=== PATIENT | male | born 1960 | race Caucasian/White ===

== ENCOUNTER 2023-02-19 12:32 | Inpatient (IN) | payer BC ==
[2023-02-19 13:04] VITALS: BMI 43.9
[2023-02-19] MEDS ORDERED: IBUPROFEN 400 MG TABLET (FP) PO PRN (14:59)
[2023-02-19] MEDS ORDERED: BISMUTH SUBSALICYLATE 262 MG/15 ML BTL PO PRN (14:59)
[2023-02-19] MEDS ORDERED: ONDANSETRON *ODT* 4 MG TABLET SL PRN (14:59)
[2023-02-19] MEDS ORDERED: BUPRENORPHINE HCL 150 MCG, BUPRENORPHINE HCL 75 MCG BC PRN (14:59)
[2023-02-19] MEDS ORDERED: NALOXONE HCL (KLOXXADO) 8 MG SPRAY NS PRN (14:59)
[2023-02-19] MEDS ORDERED: BUPRENORPHINE HCL 150 MCG, BUPRENORPHINE HCL 75 MCG BC ONE (14:59)
[2023-02-19] MEDS ORDERED: BENZOCAINE/MENTHOL (CHLORASEPTIC ) LOZENGE MM PRN (14:59)
[2023-02-19] MEDS ORDERED: guaiFENesin 600 MG TABLET.ER (FP) PO PRN (14:59)
[2023-02-19] MEDS ORDERED: cloNIDine HCL 0.1 MG TABLET PO ONE (14:59)
[2023-02-19] MEDS ORDERED: IBUPROFEN 600 MG TABLET (FP) PO PRN (14:59)
[2023-02-19] MEDS ORDERED: ACETAMINOPHEN 325 MG TABLET (FP) PO PRN (14:59)
[2023-02-19] MEDS ORDERED: BENZONATATE 200 MG CAPSULE PO PRN (14:59)
[2023-02-19] MEDS ORDERED: POLYETHYLENE GLYCOL (HEALTHYLAX) 3350 17 GM PACKET PO PRN (14:59)
[2023-02-19] MEDS ORDERED: LOPERAMIDE HCL 2 MG CAPSULE PO PRN (14:59)
[2023-02-19] MEDS ORDERED: NALOXONE HCL 0.4 MG/ML VIAL IM PRN (14:59)
[2023-02-19] MEDS ORDERED: MAGNESIUM HYDROX 2400MG/30ML ORAL SUSPENSION 30 ML CUP PO PRN (14:59)
[2023-02-19] MEDS ORDERED: DICYCLOMINE HCL 10 MG CAPSULE PO PRN (14:59)
[2023-02-19] MEDS ORDERED: MAG HYDROX/AL HYDROX/SIMETH 30 ML UNIT-DOSE CUP PO PRN (14:59)
[2023-02-19] MEDS ORDERED: BUPRENORPHINE HCL 150 MCG FILM BC ONE (15:35)
[2023-02-19] MEDS ORDERED: BUPRENORPHINE HCL 75 MCG FILM BC ONE (15:35)
[2023-02-19] MEDS ORDERED: cloNIDine HCL 0.1 MG TABLET ONE (15:35)
[2023-02-19] MEDS: PRENATAL VITAMINS W/ FOLIC ACID TABLET (FP) PO SCH (15:40)
[2023-02-19] MEDS: METHOCARBAMOL 500 MG TABLET PO PRN (18:19)
[2023-02-19] MEDS ORDERED: cloNIDine HCL 0.1 MG TABLET PO PRN (18:59)
[2023-02-19] MEDS: LIDOCAINE 5% TOPICAL PATCH TP SCH (21:02)
[2023-02-19] MEDS: THIAMINE HCL 100 MG TABLET (FP) PO SCH (22:29)
[2023-02-19] MEDS: MELATONIN 5 MG TABLETS PO SCH (22:29)
[2023-02-19] MEDS: diazePAM 5 MG TABLET PO PRN (22:31)
[2023-02-19] MEDS: LIDOCAINE PATCH REMOVAL MC SCH (22:35)
[2023-02-20] MEDS ORDERED: BUPRENORPHINE HCL 150 MCG, BUPRENORPHINE HCL 75 MCG BC PRN
[2023-02-20] MEDS: BUPRENORPHINE HCL 150 MCG, BUPRENORPHINE HCL 75 MCG BC SCH ×2 (05:18→17:26)
[2023-02-20] MEDS: PRENATAL VITAMINS W/ FOLIC ACID TABLET (FP) PO SCH (10:08)
[2023-02-20] MEDS: LIDOCAINE 5% TOPICAL PATCH TP SCH (10:08)
[2023-02-20] MEDS: hydrOXYzine PAMOATE 25 MG CAPSULE (FP) PO PRN ×2 (10:10→22:31)
[2023-02-20 11:32] LABS: HEMATOCRIT 38.5 % (35.4-49); HEMOGLOBIN 12.6 GM/dL (11.7-16.9); MCH 28.3 pg (25.7-33.7); MCHC 32.7 g/dl (32.0-35.9); MEAN CELL VOLUME 86.5 fl (80-96); MEAN PLT VOLUME 8.1 fl (7.5-11.1); PLATELET COUNT 51 10^3/uL (134-434); RBC 4.45 M/mm3 (4.00-5.60); RDW 15.1 % (11.9-15.9); WHITE BLOOD COUNT 6.1 K/mm3 (4.0-10.0)
[2023-02-20 11:34] LABS: POTASSIUM 4.8 mmol/L (3.5-5.1)
[2023-02-20 11:38] LABS: CALCIUM 8.4 mg/dL (8.5-10.1)
[2023-02-20 11:39] LABS: ALBUMIN 3.1 g/dl (3.4-5.0); BLOOD UREA NITROGEN 24.2 mg/dL (7-18)
[2023-02-20 11:42] LABS: CREATININE 1.1 mg/dL (0.55-1.3)
[2023-02-20 11:44] LABS: BILIRUBIN,TOTAL 0.5 mg/dL (0.2-1); TOT PROT 6.9 g/dl (6.4-8.2)
[2023-02-20] MEDS ORDERED: FLU VACCINE (FLULAVAL) PF 60 MCG/0.5 ML SYRINGE 2023-2024 IM ONE (12:00)
[2023-02-20 12:54] LABS: HIV INTERPRETATION NEGATIVE (NEGATIVE)
[2023-02-20 14:03] VITALS: RESP 16
[2023-02-20] MEDS: METHOCARBAMOL 500 MG TABLET PO PRN ×2 (14:14→22:31)
[2023-02-20] MEDS: diazePAM 5 MG TABLET PO PRN (18:42)
[2023-02-20] MEDS ORDERED: AMITRIPTYLINE HCL 75 MG TABLET PO SCH (22:00)
[2023-02-20] MEDS: MELATONIN 5 MG TABLETS PO SCH (22:31)
[2023-02-20] MEDS: THIAMINE HCL 100 MG TABLET (FP) PO SCH (22:31)
[2023-02-20] MEDS: LIDOCAINE PATCH REMOVAL MC SCH (22:33)
[2023-02-20] MEDS ORDERED: AMITRIPTYLINE HCL 25 MG TABLET PO SCH (23:30)
[2023-02-21] MEDS: diazePAM 5 MG TABLET PO PRN ×2 (02:09→10:17)
[2023-02-21] MEDS ORDERED: BUPRENORPHINE HCL 450 MCG FILM BC SCH (06:00)
[2023-02-21] MEDS: LIDOCAINE 5% TOPICAL PATCH TP SCH (10:17)
[2023-02-21] MEDS: PRENATAL VITAMINS W/ FOLIC ACID TABLET (FP) PO SCH (10:17)
[2023-02-21] MEDS: METHOCARBAMOL 500 MG TABLET PO PRN (10:17)
[2023-02-21 13:03] VITALS: BP 128/80; PULSE 66; TEMP 96.8
[2023-02-22] MEDS ORDERED: BUPRENORPHINE/NALOXONE 4 MG/1 MG FILM PACKET SL SCH (06:00)
[2023-02-23] MEDS ORDERED: BUPRENORPHINE/NALOXONE 8 MG/2 MG FILM PACKET SL ONE (06:00)
== END 2023-02-21 12:47 | disposition left against medical advice (07) | DRG 770 ==
LOC: YASAS 12:32 → Y6N 15:00
PROVIDERS: ADMIT Allergy & Immunology; ATTEND Surgery
PROC: HZ2ZZZZ Detoxification Services for Substance Abuse Treatment (ICD-10-PCS; principal; 2023-02-19)
DX: F11.23 Opioid dependence with withdrawal (principal); F17.210 Nicotine dependence, cigarettes, uncomplicated; F19.280 Other psychoactive substance dependence with psychoactive substance-induced anxiety disorder; F19.282 Other psychoactive substance dependence with psychoactive substance-induced sleep disorder; F41.9 Anxiety disorder, unspecified; F32.A Depression, unspecified; M17.0 Bilateral primary osteoarthritis of knee; M51.26 Other intervertebral disc displacement, lumbar region; G89.29 Other chronic pain; Z88.1 Allergy status to other antibiotic agents
CPT/HCPCS: 36415; 80053; 85027; 86780; 87389; 87635; 87811; 90686; 93005; 93010; G0008